=== PATIENT | female | born 1990 | race Caucasian/White ===

== ENCOUNTER 2018-01-06 23:22 | Emergency (ER) | payer MEDICAID ==
[~2018-01-06] VITALS: Ht 165.1 cm; Wt 103.2 kg
[2018-01-06 23:28] VITALS: BP 118/62; TEMP 97
[2018-01-07 00:21] LABS: ALBUMIN 3.1 gm/dL (3.5-5.0); BILIRUBIN,TOTAL 0.3 mg/dL (0.0-1.0); CALCIUM 8.9 mg/dL (8.4-10.2); CREATININE, serum 0.59 mg/dL (0.52-1.25); POTASSIUM 3.6 mmol/L (3.4-5.0); TOTAL PROTEIN 6.9 gm/dL (6.4-8.2)
[2018-01-07 00:24] LABS: BASO % 0.1 % (0.0-2.0); EOS # 0.1 (0.0-0.7); EOS % 0.4 % (0-4.0); GRAN # 10.6 (1.4-6.5); GRAN % 72.7 % (42.2-75.2); HEMOGLOBIN 10.7 g/dl (12.5-16.0); LYMPH # 2.9 (1.2-3.4); LYMPH % 20.1 % (20.0-51.0); MEAN CELL VOLUME 88 fl (80.0-100.0); MEAN CORPUSCULAR HEMOGLOBIN 29 pg (27.0-31.0); MEAN CORPUSCULAR HGB CONC 33 g/dl (33.0-37.0); MEAN PLATELET VOLUME 10.2 fl (7.4-10.4); MONO # 0.9 (0.1-0.6); MONO % 6.2 % (1.7-9.3); PLATELET COUNT 335 K/mm3 (130-400); RED BLOOD COUNT 3.75 M/mm3 (4.10-5.30); REDCELL DISTRIBUTION WIDTH-CV 13.2 % (11.5-14.5)
[2018-01-07 00:25] LABS: HEMATOCRIT 32.8 % (37.0-47.0)
[2018-01-07 01:10] LABS: COLLECTION METHOD CLEAN CATCH
[2018-01-07 01:16] LABS: PH 6 (5-8); SQUAMOUS EPITHELIAL 0-2 /hpf; URINE APPEARANCE Clear; URINE BACTERIA Rare /hpf; URINE BILIRUBIN Negative (NEGATIVE); URINE BLOOD Negative (NEGATIVE); URINE COLOR Straw; URINE GLUCOSE Negative (NEGATIVE); URINE KETONE Negative (NEGATIVE); URINE LEUKOCYTE ESTERASE Negative (NEGATIVE); URINE NITRATE Negative (NEGATIVE); URINE PROTEIN(semi-quant) Negative (NEGATIVE); URINE RBC 0-2 /hpf; URINE UROBILINOGEN Negative (NEGATIVE)
[2018-01-07] MEDS ORDERED: NORCO 325 MG-51 TAB PO (01:16)
[2018-01-07 02:00] VITALS: PULSE 79
== END 2018-01-07 02:01 | disposition home or self-care (01) ==
LOC: COL.ER 23:22
PROVIDERS: Emergency Medicine
DX: O9A.213 Injury, poisoning and certain other consequences of external causes complicating pregnancy, third trimester (principal); S93.402A Sprain of unspecified ligament of left ankle, initial encounter; S93.401A Sprain of unspecified ligament of right ankle, initial encounter; Z3A.32 32 weeks gestation of pregnancy; W10.9XXA Fall (on) (from) unspecified stairs and steps, initial encounter; X50.0XXA Overexertion from strenuous movement or load, initial encounter; Y92.009 Unspecified place in unspecified non-institutional (private) residence as the place of occurrence of the external cause

== ENCOUNTER 2018-02-23 10:22 | Inpatient (IN) | payer MEDICAID ==
[~2018-02-23] VITALS: Ht 165.1 cm; Wt 110.0 kg
[2018-02-23] VITALS (18 sets, daily range): BP systolic 84–130; BP diastolic 54–114; PULSE 69–90; TEMP 97.8–98
[~2018-02-23 10:22] MED LIST: NORCO 325 MG-51 TAB PO
[2018-02-23] MEDS ORDERED: TUMS500 MG (10:39)
[2018-02-23] MEDS ORDERED: PRENATAL1 TA7 PO (10:40)
[2018-02-23] MEDS ORDERED: IMODIUM 2MG CAPS2 MG PO (10:40)
[2018-02-23 11:51] LABS: BASO % 0.1 % (0.0-2.0); EOS # 0.1 (0.0-0.7); EOS % 1.5 % (0-4.0); GRAN # 6.1 (1.4-6.5); GRAN % 64.3 % (42.2-75.2); HEMOGLOBIN 10.3 g/dl (12.5-16.0); LYMPH # 2.4 (1.2-3.4); LYMPH % 25.5 % (20.0-51.0); MEAN CELL VOLUME 83 fl (80.0-100.0); MEAN CORPUSCULAR HEMOGLOBIN 26 pg (27.0-31.0); MEAN CORPUSCULAR HGB CONC 32 g/dl (33.0-37.0); MEAN PLATELET VOLUME 11.1 fl (7.4-10.4); MONO # 0.8 (0.1-0.6); MONO % 8.2 % (1.7-9.3); PLATELET COUNT 268 K/mm3 (130-400); RED BLOOD COUNT 3.94 M/mm3 (4.10-5.30); REDCELL DISTRIBUTION WIDTH-CV 15.4 % (11.5-14.5)
[2018-02-23 11:58] LABS: HEMATOCRIT 32.7 % (37.0-47.0)
[2018-02-24 00:45] VITALS: BP 96/52; PULSE 83; TEMP 97.7
[2018-02-24 04:05] VITALS: BP 125/75; PULSE 94; TEMP 97.6
[2018-02-24 07:29] VITALS: BP 114/62; PULSE 78; TEMP 98
[2018-02-24 16:00] VITALS: BP 115/50; PULSE 75; TEMP 98.1
[2018-02-24 19:56] VITALS: BP 124/70; PULSE 83; TEMP 98
[2018-02-25 07:00] VITALS: BP 122/75; PULSE 98; TEMP 98.6
[2018-02-25] MEDS ORDERED: MOTRIN 800800 MG/TAB PO (08:29)
[2018-02-25] MEDS ORDERED: PERCOCET 325 MG1 TA2 PO (08:29)
[2018-02-25 15:50] VITALS: BP 127/65; PULSE 74; TEMP 98.3
[2018-02-25 20:00] VITALS: BP 121/65; PULSE 72; TEMP 98.3
[2018-02-26 08:00] VITALS: BP 121/58; BP 129/75; PULSE 73; PULSE 90; TEMP 97.5; TEMP 98
== END 2018-02-26 18:10 | disposition home or self-care (01) | DRG 766 ==
LOC: LDRO 10:22 → OB 11:19 → LDR 11:19 → OB 13:50
PROVIDERS: Obstetrics & Gynecology
PROC: 10D00Z1 Extraction of Products of Conception, Low, Open Approach (ICD-10-PCS; principal; 2018-02-23)
DX: O34.211 Maternal care for low transverse scar from previous cesarean delivery (principal); Z3A.39 39 weeks gestation of pregnancy; Z37.0 Single live birth; Z22.330 Carrier of Group B streptococcus
CPT/HCPCS: J0690; J1885; J2175; J2370; J2405; J2590; J3010; J7120

== ENCOUNTER 2018-12-13 10:00 | Outpatient (RCR) | payer MEDICARE, MEDICAID ==
[~2018-12-13 10:00] MED LIST changes: +IMODIUM 2MG CAPS2 MG PO; +MOTRIN 800800 MG/TAB PO; +PERCOCET 325 MG1 TA2 PO; +PRENATAL1 TA7 PO; +TUMS500 MG
== END 2018-12-14 10:28 | disposition home or self-care (01) ==
LOC: MKS.ESL.PT 10:00
DX: Z96.651 Presence of right artificial knee joint (principal); Z98.890 Other specified postprocedural states